=== PATIENT | male | born 1960 | race Caucasian/White ===

== ENCOUNTER 2017-11-15 11:15 | Inpatient (IN) | payer MEDICAID ==
[~2017-11-15] VITALS: Ht 170.2 cm; Wt 73.0 kg
[2017-11-15 11:57] LABS: BASOPHILS % (AUTO) 0.1 % (0.0-2.0); EOSINOPHILS % (AUTO) 1.1 % (1.0-6.0); HEMATOCRIT 44.4 % (41-53); HEMOGLOBIN 15.3 g/dL (13.5-17.5); LYMPHOCYTES # (AUTO) 1.5 K/uL (1.0-4.8); LYMPHOCYTES % (AUTO) 13.6 % (22.0-44.0); MEAN CORPUSCULAR HEMOGLOBIN 32.5 pg (26.0-34.0); MEAN CORPUSCULAR HGB CONC 34.5 G/dL (31.0-37.0); MEAN CORPUSCULAR VOLUME 94 fL (80-100); MONOCYTES # (AUTO) 0.9 K/uL (0.1-1.0); NEUTROPHILS # (AUTO) 8.4 K/uL (1.8-7.7); NEUTROPHILS % (AUTO) 77.2 % (40.0-70.0); PLATELET COUNT (AUTO) 149 K/uL (150-450); RED CELL DISTRIBUTION WIDTH 14.6 % (11.5-14.5)
[2017-11-15 12:06] LABS: AMPHET/METH SCREEN,URINE NEGATIVE (NEGATIVE); BARBITURATE SCREEN, URINE NEGATIVE (NEGATIVE); BENZODIAZEPINES SCREEN,URINE POSITIVE (NEGATIVE); CANNABINOID SCREEN,URINE NEGATIVE (NEGATIVE); COCAINE SCREEN,URINE NEGATIVE (NEGATIVE); METHADONE SCREEN, URINE NEGATIVE (NEGATIVE); OPIATE SCREEN,URINE NEGATIVE (NEGATIVE); PHENCYCLIDINE SCREEN,URINE NEGATIVE (NEGATIVE)
[2017-11-15 12:08] LABS: ANION GAP 4 mmol/L (8-16); CALCIUM, TOTAL 8.8 mg/dL (8.8-10.5); CARBON DIOXIDE 29 mmol/L (22-29); CHLORIDE 105 mmol/L (98-107); CREATININE 0.98 mg/dL (0.60-1.30); GLOMERULAR FILTR. RATE CALC > 60 mL/min (>60); GLUCOSE,RANDOM 88 mg/dL (70-110); POTASSIUM 3.7 mmol/L (3.5-5.1); SODIUM SERUM 138 mmol/L (136-145); UREA NITROGEN, BLOOD 8 mg/dL (7-18)
[2017-11-15 12:13] LABS: ALANINE AMINOTRANSFERASE 110 U/L (12-78); ALBUMIN 3.4 g/dL (3.4-5.0); ALKALINE PHOSPHATASE 108 U/L (46-116); ASPARTATE AMINOTRANSFERASE 75 U/L (15-37); BILIRUBIN,TOTAL 0.7 mg/dL (0.1-1.0); TOTAL PROTEIN, SERUM 6.7 g/dL (6.4-8.2)
[2017-11-15] MEDS ORDERED: ChlordiazePOXIDE HCL 25 MG CAPSULE PO ONE (16:00)
[2017-11-15] MEDS ORDERED: CYANOCOBALAMIN 1,000 MCG/ML VIAL IM ONE (16:30)
[2017-11-15] MEDS ORDERED: LORazepam 2 MG TABLET PO PRN (16:30)
[2017-11-15] MEDS ORDERED: HydrOXYzine PAMOATE 50 MG CAPSULE PO PRN (16:30)
[2017-11-15] MEDS ORDERED: ChlordiazePOXIDE HCL 25 MG CAPSULE PO PRN (16:30)
[2017-11-15] MEDS ORDERED: HALOPERIDOL 5 MG TABLET PO PRN (16:30)
[2017-11-15] MEDS ORDERED: LOPERAMIDE HCL 2 MG CAPSULE PO PRN (16:30)
[2017-11-15] MEDS ORDERED: GuaiFENesin/D-METHORPHAN [SUGAR-FREE] 200-20MG/10 ML SYRUP UDCUP PO PRN (16:30)
[2017-11-15] MEDS ORDERED: ZOLPIDEM TARTRATE 10 MG TABLET PO PRN (16:30)
[2017-11-15] MEDS: THIAMINE HCL 100 MG TABLET PO SCH (19:57)
[2017-11-15 20:00] VITALS: BP 116/76
[2017-11-15 21:00] VITALS: BP 112/78
[2017-11-15] MEDS ORDERED: PNEUMOCOCCAL VACCINE POLYVALENT 0.5 ML VIAL [PPSV23] IM ONE (21:00)
[2017-11-15] MEDS ORDERED: INFLUENZA VIRUS VACCINE QVS 2017-18 (3YR+)/PF 60 MCG/0.5 ML SYRINGE IM ONE (21:00)
[2017-11-15 21:14] VITALS: BP 116/76
[2017-11-15 22:00] VITALS: BP 118/67
[2017-11-15 23:00] VITALS: BP 111/56
[2017-11-16] VITALS (8 sets, daily range): BP systolic 101–124; BP diastolic 61–82
[2017-11-16] MEDS ORDERED: ChlordiazePOXIDE HCL 25 MG CAPSULE PO PRN (07:00)
[2017-11-16 09:03] LABS: CHOL/HDL RATIO 2.5 (4.2-7.3)
[2017-11-16] MEDS: ChlordiazePOXIDE HCL 25 MG CAPSULE PO SCH ×4 (10:52→20:32)
[2017-11-16] MEDS: MULTIVITAMINS WITH MINERALS, THERAPEUTIC TABLET PO SCH (10:52)
[2017-11-16] MEDS: FOLIC ACID 1 MG TABLET PO SCH (10:52)
[2017-11-16] MEDS: THIAMINE HCL 100 MG TABLET PO SCH ×2 (10:52→16:49)
[2017-11-17] VITALS: BP 116/71
[2017-11-17 02:19] VITALS: BP 122/74
[2017-11-17 04:00] VITALS: BP 121/75
[2017-11-17 07:39] LABS: HEMOGLOBIN A1C 5.7 % (4.5-6.2)
[2017-11-17 07:56] LABS: ALANINE AMINOTRANSFERASE 137 U/L (12-78); ALBUMIN 3.5 g/dL (3.4-5.0); ALKALINE PHOSPHATASE 101 U/L (46-116); ASPARTATE AMINOTRANSFERASE 65 U/L (15-37); BILIRUBIN,TOTAL 0.6 mg/dL (0.1-1.0); CARBON DIOXIDE 29 mmol/L (22-29); CREATININE 1.02 mg/dL (0.60-1.30); GLOMERULAR FILTR. RATE CALC > 60 mL/min (>60); GLUCOSE,RANDOM 89 mg/dL (70-110); THYROID STIMULATING HORMONE 2.58 uIU/mL (0.36-3.74); TOTAL PROTEIN, SERUM 7.1 g/dL (6.4-8.2); UREA NITROGEN, BLOOD 9 mg/dL (7-18)
[2017-11-17 08:43] LABS: ANION GAP 9 mmol/L (8-16); CHLORIDE 104 mmol/L (98-107); POTASSIUM 3.8 mmol/L (3.5-5.1); SODIUM SERUM 142 mmol/L (136-145)
[2017-11-17 09:00] VITALS: BP 109/71
[2017-11-17] MEDS: ChlordiazePOXIDE HCL 25 MG CAPSULE PO SCH ×4 (09:10→20:35)
[2017-11-17] MEDS: MULTIVITAMINS WITH MINERALS, THERAPEUTIC TABLET PO SCH (09:10)
[2017-11-17] MEDS: FOLIC ACID 1 MG TABLET PO SCH (09:10)
[2017-11-17] MEDS: THIAMINE HCL 100 MG TABLET PO SCH ×2 (09:10→17:09)
[2017-11-17 11:43] VITALS: BP 121/74
[2017-11-17 16:00] VITALS: BP 104/58
[2017-11-18 06:05] VITALS: BP 107/63
[2017-11-18] MEDS ORDERED: ChlordiazePOXIDE HCL 10 MG CAPSULE PO PRN (07:00)
[2017-11-18 09:00] VITALS: BP 117/76
[2017-11-18] MEDS: MULTIVITAMINS WITH MINERALS, THERAPEUTIC TABLET PO SCH (09:08)
[2017-11-18] MEDS: ChlordiazePOXIDE HCL 10 MG CAPSULE PO SCH ×3 (09:09→12:37)
[2017-11-18] MEDS: FOLIC ACID 1 MG TABLET PO SCH (09:10)
[2017-11-18] MEDS: THIAMINE HCL 100 MG TABLET PO SCH (09:10)
[2017-11-18 13:58] VITALS: BP 115/70
[2017-11-19] MEDS ORDERED: ChlordiazePOXIDE HCL 10 MG CAPSULE PO PRN (07:00)
== END 2017-11-18 14:29 | disposition home or self-care (01) | DRG 751 ==
LOC: EMS 11:19 → 3EI 18:51
PROVIDERS: ADMIT Psychiatry & Neurology Psychiatry; ATTEND Psychiatry & Neurology Psychiatry
DX: F33.2 Major depressive disorder, recurrent severe without psychotic features (principal); D69.6 Thrombocytopenia, unspecified; R45.851 Suicidal ideations; F10.239 Alcohol dependence with withdrawal, unspecified; I10 Essential (primary) hypertension; I25.10 Atherosclerotic heart disease of native coronary artery without angina pectoris; F17.210 Nicotine dependence, cigarettes, uncomplicated; Z59.0 Homelessness; Z82.0 Family history of epilepsy and other diseases of the nervous system; Z91.19 Patient's noncompliance with other medical treatment and regimen; Z95.1 Presence of aortocoronary bypass graft; I25.2 Old myocardial infarction
CPT/HCPCS: 80074; 83036; 84443; 96372; 99285; 99406; G0480; J3420

== ENCOUNTER 2017-11-21 05:29 | Inpatient (IN) | payer MEDICAID ==
[2017-11-21] VITALS (7 sets, daily range): BP systolic 118–174; BP diastolic 68–100
[~2017-11-21] VITALS: Ht 170.2 cm; Wt 69.4 kg
[2017-11-21 06:13] LABS: BASOPHILS % (AUTO) 0.4 % (0.0-2.0); EOSINOPHILS % (AUTO) 0.4 % (1.0-6.0); HEMATOCRIT 49.3 % (41-53); HEMOGLOBIN 16.7 g/dL (13.5-17.5); LYMPHOCYTES # (AUTO) 2.3 K/uL (1.0-4.8); LYMPHOCYTES % (AUTO) 25.7 % (22.0-44.0); MEAN CORPUSCULAR HEMOGLOBIN 32.5 pg (26.0-34.0); MEAN CORPUSCULAR HGB CONC 33.8 G/dL (31.0-37.0); MEAN CORPUSCULAR VOLUME 96 fL (80-100); MONOCYTES # (AUTO) 0.8 K/uL (0.1-1.0); MONOCYTES % (AUTO) 8.6 % (2.0-9.0); NEUTROPHILS # (AUTO) 5.8 K/uL (1.8-7.7); NEUTROPHILS % (AUTO) 64.9 % (40.0-70.0); PLATELET COUNT (AUTO) 337 K/uL (150-450); RED BLOOD CELL COUNT(AUTO) 5.12 MIL/uL (4.50-5.90); RED CELL DISTRIBUTION WIDTH 15.1 % (11.5-14.5)
[2017-11-21 06:23] LABS: ANION GAP 13 mmol/L (8-16); CALCIUM, TOTAL 8.6 mg/dL (8.8-10.5); CARBON DIOXIDE 26 mmol/L (22-29); CHLORIDE 102 mmol/L (98-107); CREATININE 1.08 mg/dL (0.60-1.30); GLOMERULAR FILTR. RATE CALC > 60 mL/min (>60); GLUCOSE,RANDOM 67 mg/dL (70-110); SODIUM SERUM 141 mmol/L (136-145); UREA NITROGEN, BLOOD 14 mg/dL (7-18)
[2017-11-21 06:30] LABS: ALANINE AMINOTRANSFERASE 107 U/L (12-78); ALBUMIN 3.8 g/dL (3.4-5.0); ALKALINE PHOSPHATASE 107 U/L (46-116); ASPARTATE AMINOTRANSFERASE 79 U/L (15-37); BILIRUBIN,TOTAL 0.4 mg/dL (0.1-1.0); TOTAL PROTEIN, SERUM 7.4 g/dL (6.4-8.2)
[2017-11-21] MEDS ORDERED: CYANOCOBALAMIN 1,000 MCG/ML VIAL IM ONE (10:30)
[2017-11-21] MEDS ORDERED: LOPERAMIDE HCL 2 MG CAPSULE PO PRN (10:30)
[2017-11-21] MEDS ORDERED: HALOPERIDOL 5 MG TABLET PO PRN (10:30)
[2017-11-21] MEDS ORDERED: GuaiFENesin/D-METHORPHAN [SUGAR-FREE] 200-20MG/10 ML SYRUP UDCUP PO PRN (10:30)
[2017-11-21] MEDS ORDERED: ZOLPIDEM TARTRATE 10 MG TABLET PO PRN (10:30)
[2017-11-21] MEDS ORDERED: HydrOXYzine PAMOATE 50 MG CAPSULE PO PRN (10:30)
[2017-11-21] MEDS: ChlordiazePOXIDE HCL 25 MG CAPSULE PO PRN ×2 (14:53→17:18)
[2017-11-21] MEDS: THIAMINE HCL 100 MG TABLET PO SCH (16:39)
[2017-11-21] MEDS ORDERED: INFLUENZA VIRUS VACCINE QVS 2017-18 (3YR+)/PF 60 MCG/0.5 ML SYRINGE IM ONE (17:30)
[2017-11-21] MEDS ORDERED: MIRTAZAPINE 15 MG TABLET PO SCH (21:00)
[2017-11-22] VITALS (9 sets, daily range): BP systolic 104–124; BP diastolic 68–78
[2017-11-22] MEDS ORDERED: PNEUMOCOCCAL VACCINE POLYVALENT 0.5 ML VIAL [PPSV23] IM ONE (04:15)
[2017-11-22] MEDS ORDERED: ChlordiazePOXIDE HCL 25 MG CAPSULE PO PRN (07:00)
[2017-11-22] MEDS: MULTIVITAMINS WITH MINERALS, THERAPEUTIC TABLET PO SCH (09:16)
[2017-11-22] MEDS: THIAMINE HCL 100 MG TABLET PO SCH ×2 (09:16→16:32)
[2017-11-22] MEDS: ChlordiazePOXIDE HCL 25 MG CAPSULE PO SCH ×4 (09:16→20:33)
[2017-11-22] MEDS: FOLIC ACID 1 MG TABLET PO SCH (09:16)
[2017-11-22] MEDS: PANTOPRAZOLE SODIUM 40 MG DR TABLET PO SCH (09:17)
[2017-11-22] MEDS: ASPIRIN 81 MG EC TABLET PO SCH (09:17)
[2017-11-22] MEDS: MIRTAZAPINE 15 MG TABLET PO SCH (20:33)
[2017-11-23 00:48] VITALS: BP 121/82
[2017-11-23] MEDS: FOLIC ACID 1 MG TABLET PO SCH (09:00)
[2017-11-23] MEDS: PANTOPRAZOLE SODIUM 40 MG DR TABLET PO SCH (09:00)
[2017-11-23] MEDS: ASPIRIN 81 MG EC TABLET PO SCH (09:00)
[2017-11-23] MEDS: ChlordiazePOXIDE HCL 25 MG CAPSULE PO SCH ×4 (09:00→20:30)
[2017-11-23] MEDS: MULTIVITAMINS WITH MINERALS, THERAPEUTIC TABLET PO SCH (09:00)
[2017-11-23] MEDS: THIAMINE HCL 100 MG TABLET PO SCH ×2 (09:00→16:17)
[2017-11-23 09:33] VITALS: BP 116/74
[2017-11-23 13:11] VITALS: BP 116/74
[2017-11-23 16:21] VITALS: BP 118/76
[2017-11-23] MEDS: MIRTAZAPINE 15 MG TABLET PO SCH (20:31)
[2017-11-24 06:30] VITALS: BP 124/79
[2017-11-24] MEDS ORDERED: ChlordiazePOXIDE HCL 10 MG CAPSULE PO PRN (07:00)
[2017-11-24 07:03] VITALS: BP 124/79
[2017-11-24 08:44] VITALS: BP 128/76
[2017-11-24] MEDS ORDERED: ASPI81 PO (08:44)
[2017-11-24] MEDS ORDERED: PANT40TA25 PO (08:44)
[2017-11-24] MEDS ORDERED: MIRT30 PO (08:44)
[2017-11-24] MEDS ORDERED: ChlordiazePOXIDE HCL 10 MG CAPSULE PO SCH (09:00)
[2017-11-24] MEDS: PANTOPRAZOLE SODIUM 40 MG DR TABLET PO SCH (09:30)
[2017-11-24] MEDS: ASPIRIN 81 MG EC TABLET PO SCH (09:30)
[2017-11-24] MEDS: FOLIC ACID 1 MG TABLET PO SCH (09:30)
[2017-11-24] MEDS: MULTIVITAMINS WITH MINERALS, THERAPEUTIC TABLET PO SCH (09:30)
[2017-11-24] MEDS: THIAMINE HCL 100 MG TABLET PO SCH (09:30)
[2017-11-25] MEDS ORDERED: ChlordiazePOXIDE HCL 10 MG CAPSULE PO PRN (07:00)
== END 2017-11-24 11:35 | disposition home or self-care (01) | DRG 750 ==
LOC: EMS 05:30 → B2S 14:09
PROVIDERS: ADMIT Psychiatry & Neurology Psychiatry; ATTEND Psychiatry & Neurology Psychiatry
PROC: 3E0234Z Introduction of Serum, Toxoid and Vaccine into Muscle, Percutaneous Approach (ICD-10-PCS; principal; 2017-11-22)
DX: F25.9 Schizoaffective disorder, unspecified (principal); F33.2 Major depressive disorder, recurrent severe without psychotic features; R45.851 Suicidal ideations; Z59.0 Homelessness; Z91.19 Patient's noncompliance with other medical treatment and regimen; F17.210 Nicotine dependence, cigarettes, uncomplicated; T51.0X1A Toxic effect of ethanol, accidental (unintentional), initial encounter; Y90.8 Blood alcohol level of 240 mg/100 ml or more; I25.2 Old myocardial infarction; Z23 Encounter for immunization
CPT/HCPCS: 87081; 90471; 99285; G0480; J3420

== ENCOUNTER 2018-01-14 12:06 | Emergency (ER) | payer MEDICAID ==
[~2018-01-14] VITALS: Ht 170.2 cm; Wt 82.3 kg
[~2018-01-14 12:06] MED LIST: ASPI81 PO; MIRT30 PO; PANT40TA25 PO
[2018-01-14] MEDS ORDERED: MAGNESIUM SULFATE 2 GM, MVI, ADULT NO.1 WITH VIT K 10 ML, THIAMINE HCL 100 MG, FOLIC AC... IV ONE ×5 (14:00)
[2018-01-14 14:49] LABS: AMPHET/METH SCREEN,URINE NEGATIVE (NEGATIVE); BARBITURATE SCREEN, URINE NEGATIVE (NEGATIVE); BENZODIAZEPINES SCREEN,URINE POSITIVE (NEGATIVE); CANNABINOID SCREEN,URINE NEGATIVE (NEGATIVE); COCAINE SCREEN,URINE NEGATIVE (NEGATIVE); METHADONE SCREEN, URINE NEGATIVE (NEGATIVE); OPIATE SCREEN,URINE NEGATIVE (NEGATIVE)
[2018-01-14 14:50] LABS: PHENCYCLIDINE SCREEN,URINE NEGATIVE (NEGATIVE)
[2018-01-14 19:35] VITALS: BP 116/69
== END 2018-01-14 19:58 | disposition home or self-care (01) ==
LOC: EMS 12:07
DX: F10.129 Alcohol abuse with intoxication, unspecified (principal); R41.82 Altered mental status, unspecified; F32.9 Major depressive disorder, single episode, unspecified; I25.2 Old myocardial infarction; F17.210 Nicotine dependence, cigarettes, uncomplicated; Z59.0 Homelessness; Z79.82 Long term (current) use of aspirin; Z79.899 Other long term (current) drug therapy; Z98.890 Other specified postprocedural states
CPT/HCPCS: 36415; 80307; 96365; 96366; 99285; G0480; J3411; J3475; J3490 ×2; J7030